=== PATIENT | female | born 1995 | race Caucasian/White ===

== ENCOUNTER 2020-07-29 09:13 | Inpatient (IN) | payer BC ==
[2020-07-29] MEDS ORDERED: Sodium Chloride 0.9% 10 ML Syringe FLUSH PRN (19:43)
[2020-07-29] MEDS ORDERED: Misoprostol 100 MCG Tab VAG PRN (19:43)
[2020-07-29] MEDS ORDERED: Nalbuphine 10 MG/1 ML Vial IVPUSH PRN (19:43)
[2020-07-29] MEDS ORDERED: Lidocaine 1% 50 ML MDV INJECT ONE (19:43)
[2020-07-29] MEDS ORDERED: Ondansetron 4 MG/2 ML SDV IVPUSH PRN (19:43)
[2020-07-29] MEDS ORDERED: Calcium Carbonate 500 MG Tab.Chew PO PRN (19:43)
[2020-07-29] MEDS ORDERED: Acetaminophen 325 MG Tab PO PRN (19:43)
[2020-07-29] MEDS ORDERED: Lactated Ringers 1,000 ML IV SCH (19:45)
[2020-07-29] MEDS ORDERED: Oxytocin/Lactated Ringers 10 UNIT/1,000 ML BAG IV SCH ×2 (19:45)
[2020-07-29] MEDS ORDERED: Ampicillin 2 GM in Sodium Chloride 0.9% 100 ML IV ONE (20:00)
[2020-07-29] MEDS ORDERED: Misoprostol 25 MCG (1/4 of 100 MCG) Tab ONE (20:07)
[2020-07-29] MEDS: Misoprostol 25 MCG (1/4 of 100 MCG) Tab VAG PRN (20:15)
[2020-07-30] MEDS: Misoprostol 25 MCG (1/4 of 100 MCG) Tab VAG PRN (00:30)
[2020-07-30] MEDS: Ampicillin 1 GM in Sodium Chloride 0.9% 100 ML IV SCH ×3 (00:30→08:04)
[2020-07-30] MEDS ORDERED: diphenhydrAMINE 50 MG/ML SDV IVPUSH PRN (00:37)
[2020-07-30] MEDS ORDERED: ePHEDrine 50 MG/ML SDV IVPUSH PRN (00:37)
[2020-07-30] MEDS ORDERED: Bupivacaine/fentaNYL/NS 100 ML Bag EPIDUR PRN (00:37)
[2020-07-30] MEDS ORDERED: fentaNYL 100 MCG/2 ML SDV EPIDUR PRN (00:37)
[2020-07-30] MEDS ORDERED: Lidocaine 1% 50 ML MDV ONE (09:17)
--- NOTE | 2020-07-30 09:49 | PCM.LDHP ---
L&D History of Present Illness - General Date of Service: 07/30/20 Admit Problem/Dx: Patient Status Order with Admit Dx/Problem 07/29/20 19:44 Patient Status [ADT] Routine Admission Diagnosis/Problem Admission Diagnosis/Problem Term Source of Information: Patient History Limitations: Reports: No Limitations - History of Present Illness Introduction:: 4-year-old -0-0-1 LIVIA 07/24/2020 patient presented to labor and delivery at 40 weeks 5 days for induction of labor. Patient has history of screening that revealed Klinefelter syndrome XXY (noninvasive testing) Appeared Covid test was positive. 12/04/2019 blood type a positive, antibody screen negative, hemoglobin/hematocrit 13.7/42.4 with platelets 292,000, rubella immune, serology nonreactive, hepatitis B surface antigen negative, HIV negative, Chlamydia probe negative. Sees 01/01/2020 GC chlamydia negative.) 04/26/2020 hemoglobin/hematocrit 11.7/36.8, platelets 262,000, 1 hour OB glucose screen 108. RPR nonreactive. 06/28/2020 GBS positive Admit for induction and delivery. Pain Score: 9 Improves with: Reports: None Worsens with: Reports: None Associated Symptoms: Reports: N - Related Data Allergies/Adverse Reactions: Allergies Allergy/AdvReac Type Severity Reaction Status Date / Time Sulfa (Sulfonamide Allergy Mild Other Verified 07/29/20 20:01 Antibiotics) Home Medications: Home Meds Mv-Mn/Iron/FA/Herbal/Digestive [ One Tablet] 1 each PO DAILY 07/23/20 [History] Ascorbic Acid [Vitamin C] 1 cap PO DAILY 07/29/20 [History] Past Medical History [employer] History: Reports: - Past Surgical History HEENT Surgical History: Reports: Adenoidectomy, Oral Surgery, Tonsillectomy Other HEENT Surgeries/Procedures: [place] teeth extraction Social & Family History - Family History Family Medical History: No Pertinent Family History - Tobacco Use Tobacco Use Status *Q: Never Tobacco User Second Hand Smoke Exposure: No - Recreational Drug Use Recreational Drug Use: No H&P Review of Systems - Review of Systems: Review Of Systems: See Below General: Reports: No Symptoms HEENT: Reports: No Symptoms Pulmonary: Reports: No Symptoms Cardiovascular: Reports: No Symptoms Gastrointestinal: Reports: No Symptoms Genitourinary: Reports: No Symptoms Musculoskeletal: Reports: No Symptoms Skin: Reports: No Symptoms Psychiatric: Reports: No Symptoms Neurological: Reports: No Symptoms Hematologic/Lymphatic: Reports: No Symptoms Immunologic: Reports: No Symptoms L&D Exam - Exam Exam: See Below - Vital Signs Vital Signs: Last Vital Signs Temp 99.4 F 07/29/20 19:20 Pulse 87 07/29/20 19:20 Resp 16 07/29/20 19:20 BP 119/69 07/29/20 19:20 Pulse Ox 97 07/29/20 19:20 Weight: 205 lb 12.8 oz - OB Specific Movement: Active Heart Tones: Present Heart Tones per Min: 140 - Hardy Score Hardy Score Cervix Position: Anterior Hardy Score Consistency: Soft Hardy Score Effacement: 31-50% Hardy Score Dilation: 1-2 cm Hardy Score Infant's Station: -2 Hardy Score Total: 7 - Exam General: Alert, Oriented HEENT: Conjunctiva Clear, Mucosa Moist & [place] Neck: Supple, Trachea Midline Lungs: Clear to Auscultation, Normal Respiratory Effort Cardiovascular: Regular Rate, Regular Rhythm GI/Abdominal Exam: Normal Bowel Sounds, Soft, Non-Tender Genitourinary: Normal external exam Extremities: Normal Inspection, Non-Tender, No Pedal Edema, Normal Capillary Refill Skin: Warm, Dry, Intact Psychiatric: Alert, Normal Affect, Normal Mood - Patient Data Lab Results Last 24 hrs: Laboratory Results - last 24 hr 07/29/20 07/29/20 07/29/20 Range/Units 08:05 08:05 19:34 WBC 11.70 H (3.98-10.04) K/mm3 RBC 4.04 (3.98-5.22) M/mm3 Hgb 9.7 L D (11.2-15.7) gm/dl Hct 31.7 L (34.1-44.9) % MCV 78.5 L D (79.4-94.8) fl MCH 24.0 L (25.6-32.2) pg MCHC 30.6 L (32.2-35.5) g/dl RDW Std Deviation 45.1 (36.4-46.3) fL Plt Count 261 (182-369) K/mm3 MPV 9.4 (9.4-12.3) fl Neut % (Auto) 73.0 H (34.0-71.1) % Lymph % (Auto) 19.1 L (19.3-51.7) % [place] % (Auto) 6.2 (4.7-12.5) % Eos % (Auto) 0.7 (0.7-5.8) Baso % (Auto) 0.2 (0.1-1.2) % Neut # (Auto) 8.55 H (1.56-6.13) K/mm3 Lymph # (Auto) 2.23 (1.18-3.74) K/mm3 [place] # (Auto) 0.73 H (0.24-0.36) K/mm3 Eos # (Auto) 0.08 (0.04-0.36) K/mm3 Baso # (Auto) 0.02 (0.01-0.08) K/mm3 Manual Slide Review Normal smear SARS-CoV-2 RNA (CHELSY) Positive H (NEGATIVE) Blood Type A POSITIVE Gel Antibody Screen Negative Result Diagrams: 07/29/20 08:05 - Problem List (1) 41 weeks gestation of SNOMED Code(s): 01788475 ICD Code: Z3A.41 - 41 WEEKS GESTATION OF Status: Acute Current Visit: Yes (2) GBS (group B Streptococcus carrier), +RV culture, currently SNOMED Code(s): 2005212023917, 350302232, 5135009975160 ICD Code: O99.820 - STREPTOCOCCUS B CARRIER STATE COMPLICATING Status: Acute Current Visit: Yes (3) 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 , 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 SNOMED Code(s): 53161706, 41339948 ICD Code: O09.293 - SUPRVSN OF PREG W POOR REPRODCTV OR OBSTET HX, THIRD TRI Status: Acute Current Visit: Yes Problem List Initiated/Reviewed/Updated: No Orders Last 24hrs: Active Orders 24 hr Category Date Time Status Patient Status [ADT] Routine ADT 07/29/20 19:44 Active Activity as Tolerated [RC] PFP Care 07/29/20 19:44 Active Communication Order [RC] ASDIRECTED Care 07/29/20 19:44 Active Communication Order [RC] ASDIRECTED Care 07/29/20 19:44 Active Communication Order [RC] ASDIRECTED Care 07/29/20 19:44 Active Communication Order [RC] ASDIRECTED Care 07/29/20 19:44 Active Communication Order [RC] ASDIRECTED Care 07/30/20 00:37 Active Cooling Warming Measures [RC] ASDIRECTED Care 07/30/20 00:37 Active Notify Provider [RC] ASDIRECTED Care 07/29/20 19:44 Active Notify Provider [RC] ASDIRECTED Care 07/29/20 19:53 Active Notify Provider [RC] ASDIRECTED Care 07/30/20 00:37 Active Notify Provider [RC] ASDIRECTED Care 07/30/20 00:37 Active Notify Provider [RC] PFP Care 07/29/20 19:44 Active Notify Provider [RC] PRN Care 07/29/20 19:44 Active Peripheral IV Care [RC] . DIRECTED Care 07/29/20 19:44 Active Pump Management, Intrathecal [RC] ASDIRECTED Care 07/29/20 19:45 Active Urinary Catheter Assessment [RC] ASDIRECTED Care 07/29/20 19:43 Active Regular Diet [DIET] Diet 07/29/20 Dinner Active Acetaminophen [TylenoL] Med 07/29/20 19:43 Active 650 mg PO Q4H PRN Ampicillin 1 gm Med 07/30/20 00:00 Active Sodium Chloride 0.9% [Normal Saline] 100 ml IV Q4H Bupivacaine/fentaNYL/NS [fentaNYL/Bupivacaine/NS 2 MCG- Med 07/30/20 00:37 Active 0.125% 100 ML] 100 ml EPIDUR ASDIRECTED PRN Calcium Carbonate [Tums] Med 07/29/20 19:43 Active 1,000 mg PO Q2H PRN Lactated Ringers [Ringers, Lactated] 1,000 ml Med 07/29/20 19:45 Active IV ASDIRECTED Nalbuphine [Nubain] Med 07/29/20 19:43 Active 10 mg IVPUSH Q2H PRN Ondansetron [Zofran] Med 07/29/20 19:43 Active 4 mg IVPUSH Q4H PRN Oxytocin/Lactated Ringers [Pitocin in LR 10 Units/1,000 Med 07/29/20 19:45 Active ML] 10 unit in 1,000 ml IV .CONTINUOUS Oxytocin/Lactated Ringers [Pitocin in LR 10 Units/1,000 Med 07/29/20 19:45 Active ML] 10 unit in 1,000 ml IV TITRATE Sodium Chloride 0.9% [Saline Flush] Med 07/29/20 19:43 Active 10 ml FLUSH ASDIRECTED PRN diphenhydrAMINE [Benadryl] Med 07/30/20 00:37 Active 25 mg IVPUSH Q6H PRN ePHEDrine [ePHEDrine sulfate] Med 07/30/20 00:37 Active 5 mg IVPUSH ASDIRECTED PRN fentaNYL [Sublimaze] Med 07/30/20 00:37 Active 100 mcg EPIDUR Q3H PRN miSOPROStoL [Cytotec] Med 07/29/20 20:15 Active 50 mcg VAG Q4H PRN Electronic Heart Tones Ext w TOCO [WOMSER] Oth 07/29/20 19:44 Ordered Routine Electronic Heart Tones Internal [WOMSER] Per Unit Oth 07/29/20 19:44 Ordered Routine Medication Administration Instruction [OM.PC] Ot 07/29/20 20:00 Ordered ASDIRECTED Peripheral IV Insertion Adult [OM.PC] Routine Oth 07/29/20 19:44 Ordered Resuscitation Status Routine Resus Stat 07/29/20 19:43 Ordered Medication Orders Acetaminophen (Acetaminophen 325 Mg Tab) 650 mg PO Q4H PRN PRN Reason: Pain (Mild 1-3) and fever Calcium Carbonate/Glycine (Calcium Carbonate 500 Mg Tab.Chew) 1,000 mg PO Q2H PRN PRN Reason: Indigestion Diphenhydramine HCl (Diphenhydramine 50 Mg/Ml Sdv) 25 mg IVPUSH Q6H PRN PRN Reason: pruritis Ephedrine Sulfate (Ephedrine 50 Mg/Ml Sdv) 5 mg IVPUSH ASDIRECTED PRN PRN Reason: Hypotension Fentanyl (Fentanyl 100 Mcg/2 Ml Sdv) 100 mcg EPIDUR Q3H PRN PRN Reason: Pain Fentanyl/Bupivacaine HCl (Bupivacaine/Fentanyl/Ns 100 Ml Bag) 100 ml EPIDUR ASDIRECTED PRN PRN Reason: Pain Lactated Ringer's (Ringers, Lactated) 1,000 mls @ 100 mls/hr IV ASDIRECTED BOOGIE Last Admin: 07/30/20 04:34 Dose: 100 mls/hr Documented by: YOSELYN Ampicillin Sodium 1 gm/ Sodium (Chloride) 100 mls @ 200 mls/hr IV Q4H BOOGIE Last Admin: 07/30/20 08:04 Dose: 200 mls/hr Documented by: Infusion: 07/30/20 04:15 Dose: 200 mls/hr Documented by: Admin: 07/30/20 03:45 Dose: 200 mls/hr Documented by: Infusion: 07/30/20 01:00 Dose: 200 mls/hr Documented by: Admin: 07/30/20 00:30 Dose: 200 mls/hr Documented by: YOSELYN Oxytocin/Lactated Ringer's (Pitocin In Lr 10 Units/1,000 Ml) 10 unit in 1,000 mls @ 12 mls/hr IV TITRATE BOOGIE; Protocol Last Admin: 07/30/20 04:32 Dose: 2 munits/min, 12 mls/hr Documented by: YOSELYN Oxytocin/Lactated Ringer's (Pitocin In Lr 10 Units/1,000 Ml) 10 unit in 1,000 mls @ 500 mls/hr IV .CONTINUOUS [facility] Misoprostol (Misoprostol 25 Mcg (1/4 Of 100 Mcg) Tab) 50 mcg VAG Q4H PRN PRN Reason: Cervical Ripening Last Admin: 07/30/20 00:30 Dose: 50 mcg Documented by: Admin: 07/29/20 20:15 Dose: 50 mcg Documented by: YOSELYN Nalbuphine HCl (Nalbuphine 10 Mg/1 Ml Vial) 10 mg IVPUSH Q2H PRN PRN Reason: Pain Last Admin: 07/30/20 06:14 Dose: 10 mg Documented by: YOSELYN Ondansetron HCl (Ondansetron 4 Mg/2 Ml Sdv) 4 mg IVPUSH Q4H PRN PRN Reason: Nausea/Vomiting Sodium Chloride (Sodium Chloride 0.9% 10 Ml Syringe) 10 ml FLUSH ASDIRECTED PRN PRN Reason: Keep Vein Open Assessment/Plan Comment:: Plan delivery
--- NOTE | 2020-07-30 09:57 | PCM.DEL ---
L & D Note - General Info Date of Service: 07/30/20 Mother's Due Date: 07/24/20 - Delivery Note Labor: Induced by Oxytocin Cervical Ripening Method: Misoprostil (50 mcg intravaginal x2 4 hours apart), Oxytocin Delivery Outcome: Livebirth (My goal liveborn (X XY) delivered on Sunday07/30/2020 at 0913 hours JUSTIN, Apgars 8/9, weight 3310 g 7 pounds 4.8 ounces) Infant Delivery Method: Spontaneous Vaginal Delivery-Single Infant Delivery Mode: Spontaneous Presentation: Left Occiput Anterior (JUSTIN) Nuchal Cord: None Prep: Povidone-Iodine (Betadine Anesthesia Type: Local (For third-degree (3C) laceration repair) Anesthetic: Lidocaine (Xylocaine) 1% Plain (7 mL) Local Anesthetic Volume: Other (7 mL) Amniotic Fluid Description: Clear Episiotomy Type: None Laceration: 3rd Degree (3C3) Suture type: Other (Monocryl) Suture size: 3-0 (X3) Placenta: Intact, Spontaneous (07/30/2020 at 915 hours, and intact discarded) Estimated Blood Loss: 200 Resuscitation Needed: No [place]: Suctioned, Bulb Syringe, Stimulated, Warmed, [place] Used, Warmer Used Provider: Kamaljit Patricio Score 1 min: 8 Score 5 min: 9 Induction Criteria - Hardy Score Hardy Score Dilation: 1-2 cm Hardy Score Effacement: 40-50% Hardy Score 's Station: -2 Hardy Score Consistency: Soft Hardy Score Cervix Position: Posterior Hardy Score Total: 5 Hardy Score Presenting Part: Reports: Cephalic - Induction Gestational Age >/= 39 wks: Yes Estimated Pelvis: Reports: Adequate Reassuring Monitoring Strip: Yes Absence of Tachy Systole: Yes - General Info Date of Service: 07/30/20 Functional Status: Reports: Pain Controlled - Review of Systems General: Reports: No Symptoms HEENT: Reports: No Symptoms Pulmonary: Reports: No Symptoms Cardiovascular: Reports: No Symptoms Gastrointestinal: Reports: No Symptoms Genitourinary: Reports: No Symptoms Musculoskeletal: Reports: No Symptoms Skin: Reports: No Symptoms Neurological: Reports: No Symptoms Psychiatric: Reports: No Symptoms - Patient Data Vitals - Most Recent: Last Vital Signs Temp 99.4 F 07/29/20 19:20 Pulse 87 07/29/20 19:20 Resp 16 07/29/20 19:20 BP 119/69 07/29/20 19:20 Pulse Ox 97 07/29/20 19:20 Weight - Most Recent: 205 lb 12.8 oz I&O - Last 24 Hours: Intake & Output 07/29/20 07/30/20 07/30/20 22:59 06:59 14:59 Intake Total 300 Balance 300 Lab Results Last 24 Hours: Laboratory Results - last 24 hr 07/29/20 07/29/20 07/29/20 Range/Units 08:05 08:05 19:34 WBC 11.70 H (3.98-10.04) K/mm3 RBC 4.04 (3.98-5.22) M/mm3 Hgb 9.7 L D (11.2-15.7) gm/dl Hct 31.7 L (34.1-44.9) % MCV 78.5 L D (79.4-94.8) fl MCH 24.0 L (25.6-32.2) pg MCHC 30.6 L (32.2-35.5) g/dl RDW Std Deviation 45.1 (36.4-46.3) fL Plt Count 261 (182-369) K/mm3 MPV 9.4 (9.4-12.3) fl Neut % (Auto) 73.0 H (34.0-71.1) % Lymph % (Auto) 19.1 L (19.3-51.7) % [place] % (Auto) 6.2 (4.7-12.5) % Eos % (Auto) 0.7 (0.7-5.8) Baso % (Auto) 0.2 (0.1-1.2) % Neut # (Auto) 8.55 H (1.56-6.13) K/mm3 Lymph # (Auto) 2.23 (1.18-3.74) K/mm3 [place] # (Auto) 0.73 H (0.24-0.36) K/mm3 Eos # (Auto) 0.08 (0.04-0.36) K/mm3 Baso # (Auto) 0.02 (0.01-0.08) K/mm3 Manual Slide Review Normal smear SARS-CoV-2 RNA (CHELSY) Positive H (NEGATIVE) Blood Type A POSITIVE Gel Antibody Screen Negative Med Orders - Current: Current Medications Acetaminophen (Acetaminophen 325 Mg Tab) 650 mg PO Q4H PRN PRN Reason: Pain (Mild 1-3) and fever Calcium Carbonate/Glycine (Calcium Carbonate 500 Mg Tab.Chew) 1,000 mg PO Q2H PRN PRN Reason: Indigestion Diphenhydramine HCl (Diphenhydramine 50 Mg/Ml Sdv) 25 mg IVPUSH Q6H PRN PRN Reason: pruritis Ephedrine Sulfate (Ephedrine 50 Mg/Ml Sdv) 5 mg IVPUSH ASDIRECTED PRN PRN Reason: Hypotension Fentanyl (Fentanyl 100 Mcg/2 Ml Sdv) 100 mcg EPIDUR Q3H PRN PRN Reason: Pain Fentanyl/Bupivacaine HCl (Bupivacaine/Fentanyl/Ns 100 Ml Bag) 100 ml EPIDUR ASDIRECTED PRN PRN Reason: Pain Lactated Ringer's (Ringers, Lactated) 1,000 mls @ 100 mls/hr IV ASDIRECTED BOOGIE Last Admin: 07/30/20 04:34 Dose: 100 mls/hr Documented by: Ampicillin Sodium 1 gm/ Sodium (Chloride) 100 mls @ 200 mls/hr IV Q4H BOOGIE Last Admin: 07/30/20 08:04 Dose: 200 mls/hr Documented by: Oxytocin/Lactated Ringer's (Pitocin In Lr 10 Units/1,000 Ml) 10 unit in 1,000 mls @ 12 mls/hr IV TITRATE BOOGIE; Protocol Last Admin: 07/30/20 04:32 Dose: 2 munits/min, 12 mls/hr Documented by: Oxytocin/Lactated Ringer's (Pitocin In Lr 10 Units/1,000 Ml) 10 unit in 1,000 mls @ 500 mls/hr IV .CONTINUOUS BOOGIE Misoprostol (Misoprostol 25 Mcg (1/4 Of 100 Mcg) Tab) 50 mcg VAG Q4H PRN PRN Reason: Cervical Ripening Last Admin: 07/30/20 00:30 Dose: 50 mcg Documented by: Nalbuphine HCl (Nalbuphine 10 Mg/1 Ml Vial) 10 mg IVPUSH Q2H PRN PRN Reason: Pain Last Admin: 07/30/20 06:14 Dose: 10 mg Documented by: Ondansetron HCl (Ondansetron 4 Mg/2 Ml Sdv) 4 mg IVPUSH Q4H PRN PRN Reason: Nausea/Vomiting Sodium Chloride (Sodium Chloride 0.9% 10 Ml Syringe) 10 ml FLUSH ASDIRECTED PRN PRN Reason: Keep Vein Open Discontinued Medications Ampicillin Sodium 2 gm/ Sodium (Chloride) 100 mls @ 200 mls/hr IV ONETIME ONE Stop: 07/29/20 20:29 Last Admin: 07/29/20 20:10 Dose: 200 mls/hr Documented by: Lidocaine HCl (Lidocaine 1% 50 Ml Mdv) 20 ml INJECT ONETIME ONE Stop: 07/29/20 19:44 Lidocaine HCl (Lidocaine 1% 50 Ml Mdv) Confirm Administered Dose 50 ml .ROUTE .STK-MED ONE Stop: 07/30/20 09:18 Misoprostol (Misoprostol 100 Mcg Tab) 50 mcg VAG Q4HR PRN PRN Reason: Cervical Ripening Misoprostol (Misoprostol 25 Mcg (1/4 Of 100 Mcg) Tab) Confirm Administered Dose 50 mcg .ROUTE .STK-MED ONE Stop: 07/29/20 20:08 Last Admin: 07/29/20 20:20 Dose: Not Given Documented by: - Exam General: Alert, Oriented HEENT: Pupils Equal, Mucous Membr. Moist/[place] Neck: Supple Lungs: Clear to Auscultation, Normal Respiratory Effort Cardiovascular: Regular Rate, Regular Rhythm GI/Abdominal Exam: Normal Bowel Sounds, Soft, Non-Tender Extremities: Normal Inspection, Non-Tender, No Pedal Edema, Normal Capillary Refill Skin: Warm, Dry, Intact Neurological: No New Focal Deficit Psy/Mental Status: Alert, Normal Affect, Normal Mood - Problem List & Annotations (1) 41 weeks gestation of SNOMED Code(s): 85081865 Code(s): Z3A.41 - 41 WEEKS GESTATION OF Status: Acute Current Visit: Yes (2) GBS (group B Streptococcus carrier), +RV culture, currently SNOMED Code(s): 1737340391997, 322229735, 5107388625059 Code(s): O99.820 - STREPTOCOCCUS B CARRIER STATE COMPLICATING Status: Acute Current Visit: Yes (3) 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 , 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 SNOMED Code(s): 94526502, 96107537 Code(s): O09.293 - SUPRVSN OF PREG W POOR REPRODCTV OR OBSTET HX, THIRD TRI Status: Acute Current Visit: Yes (4) Third degree perineal laceration during delivery, iiic SNOMED Code(s): 285671259, 543938766 Code(s): O70.23 - THIRD DEGREE PERINEAL LACERATION DURING DELIVERY, IIIC Status: Acute Current Visit: Yes - Problem List Review Problem List Initiated/Reviewed/Updated: No - My Orders Last 24 Hours: My Active Orders 07/29/20 Dinner Regular Diet [DIET] 07/29/20 19:43 Urinary Catheter Assessment [RC] ASDIRECTED Acetaminophen [TylenoL] 650 mg PO Q4H PRN Calcium Carbonate [Tums] 1,000 mg PO Q2H PRN Nalbuphine [Nubain] 10 mg IVPUSH Q2H PRN Ondansetron [Zofran] 4 mg IVPUSH Q4H PRN Sodium Chloride 0.9% [Saline Flush] 10 ml FLUSH ASDIRECTED PRN Resuscitation Status Routine 07/29/20 19:44 Patient Status [ADT] Routine Activity as Tolerated [RC] PFP Communication Order [RC] ASDIRECTED Communication Order [RC] ASDIRECTED Communication Order [RC] ASDIRECTED Communication Order [RC] ASDIRECTED Notify Provider [RC] ASDIRECTED Notify Provider [RC] PFP Notify Provider [RC] PRN Peripheral IV Care [RC] . DIRECTED Electronic Heart Tones Ext w TOCO [WOMSER] Routine Electronic Heart Tones Internal [WOMSER] Per Unit Routine Peripheral IV Insertion Adult [OM.PC] Routine 07/29/20 19:45 Pump Management, Intrathecal [RC] ASDIRECTED Lactated Ringers [Ringers, Lactated] 1,000 ml IV ASDIRECTED Oxytocin/Lactated Ringers [Pitocin in LR 10 Units/1,000 ML] 10 unit in 1,000 ml IV .CONTINUOUS Oxytocin/Lactated Ringers [Pitocin in LR 10 Units/1,000 ML] 10 unit in 1,000 ml IV TITRATE 07/29/20 19:53 Notify Provider [RC] ASDIRECTED 07/29/20 20:00 Medication Administration Instruction [OM.PC] ASDIRECTED 07/29/20 20:15 miSOPROStoL [Cytotec] 50 mcg VAG Q4H PRN 07/30/20 00:00 Ampicillin 1 gm Sodium Chloride 0.9% [Normal Saline] 100 ml IV Q4H - Plan Plan:: Plan delivery
[2020-07-30] MEDS ORDERED: Witch Hazel Medicated Pads 40/Jar TOP PRN (10:08)
[2020-07-30] MEDS ORDERED: Docusate Sodium 100 MG Cap PO PRN (10:08)
[2020-07-30] MEDS ORDERED: Acetaminophen 325 MG Tab PO PRN (10:08)
[2020-07-30] MEDS ORDERED: Benzocaine/Menthol 20%-0.5% Spray 56 GM Canister TOP PRN (10:08)
[2020-07-30] MEDS: Ibuprofen 600 MG Tab PO PRN (14:39)
[2020-07-31] MEDS: Ibuprofen 600 MG Tab PO PRN ×2 (00:21→05:24)
--- NOTE | 2020-07-31 10:35 | PCM.DCSUM1 ---
Discharge Summary - Hospital Course Free Text/Narrative:: [facility] L/D Delivery Note Patient Name: BERENICE JONES Date of : 89 Patient Status: Inpatient Attending Provider: Kamaljit Patricio Date: 07/30/20 09:52 Initialization Date: 07/30/20 09:52 L & D Note - General Info Date of Service: 07/30/20 Mother's Due Date: 07/24/20 - Delivery Note Labor: Induced by Oxytocin Cervical Ripening Method: Misoprostil (50 mcg intravaginal x2 4 hours apart), Oxytocin Delivery Outcome: Livebirth (My goal liveborn (X XY) delivered on Sunday07/30/2020 at 0913 hours JUSTIN, Apgars 8/9, weight 3310 g 7 pounds 4.8 ounces) Infant Delivery Method: Spontaneous Vaginal Delivery-Single Infant Delivery Mode: Spontaneous Presentation: Left Occiput Anterior (JUSTIN) Nuchal Cord: None Prep: Povidone-Iodine (Betadine Anesthesia Type: Local (For third-degree (3C) laceration repair) Anesthetic: Lidocaine (Xylocaine) 1% Plain (7 mL) Local Anesthetic Volume: Other (7 mL) Amniotic Fluid Description: Clear Episiotomy Type: None Laceration: 3rd Degree (3C3) Suture type: Other (Monocryl) Suture size: 3-0 (X3) Placenta: Intact, Spontaneous (07/30/2020 at 915 hours, and intact discarded) Estimated Blood Loss: 200 Resuscitation Needed: No [place]: Suctioned, Bulb Syringe, Stimulated, Warmed, [place] Used, Warmer Used Provider: Kamaljit Patricio Score 1 min: 8 Score 5 min: 9 Induction Criteria - Hardy Score Hardy Score Dilation: 1-2 cm Hardy Score Effacement: 40-50% Hardy Score Infant's Station: -2 Hardy Score Consistency: Soft Haryd Score Cervix Position: Posterior Hardy Score Total: 5 Hardy Score Presenting Part: Reports: Cephalic - Induction Gestational Age >/= 39 wks: Yes Estimated Pelvis: Reports: Adequate Reassuring Monitoring Strip: Yes Absence of Tachy Systole: Yes - General Info Date of Service: 07/30/20 Functional Status: Reports: Pain Controlled - Review of Systems General: Reports: No Symptoms HEENT: Reports: No Symptoms Pulmonary: Reports: No Symptoms Cardiovascular: Reports: No Symptoms Gastrointestinal: Reports: No Symptoms Genitourinary: Reports: No Symptoms Musculoskeletal: Reports: No Symptoms Skin: Reports: No Symptoms Neurological: Reports: No Symptoms Psychiatric: Reports: No Symptoms - Patient Data Vitals - Most Recent: Last Vital Signs Temp 99.4 F 07/29/20 19:20 Pulse 87 07/29/20 19:20 Resp 16 07/29/20 19:20 BP 119/69 07/29/20 19:20 Pulse Ox 97 07/29/20 19:20 Weight - Most Recent: 205 lb 12.8 oz I&O - Last 24 Hours: Intake & Output 07/29/20 07/30/20 07/30/20 22:59 06:59 14:59 Intake Total 300 Balance 300 Lab Results Last 24 Hours: Laboratory Results - last 24 hr 07/29/20 07/29/20 07/29/20 Range/Units 08:05 08:05 19:34 WBC 11.70 H (3.98-10.04) K/mm3 RBC 4.04 (3.98-5.22) M/mm3 Hgb 9.7 L D (11.2-15.7) gm/dl Hct 31.7 L (34.1-44.9) % MCV 78.5 L D (79.4-94.8) fl MCH 24.0 L (25.6-32.2) pg MCHC 30.6 L (32.2-35.5) g/dl RDW Std Deviation 45.1 (36.4-46.3) fL Plt Count 261 (182-369) K/mm3 MPV 9.4 (9.4-12.3) fl Neut % (Auto) 73.0 H (34.0-71.1) % Lymph % (Auto) 19.1 L (19.3-51.7) % Gibson % (Auto) 6.2 (4.7-12.5) % Eos % (Auto) 0.7 (0.7-5.8) Baso % (Auto) 0.2 (0.1-1.2) % Neut # (Auto) 8.55 H (1.56-6.13) K/mm3 Lymph # (Auto) 2.23 (1.18-3.74) K/mm3 Gibson # (Auto) 0.73 H (0.24-0.36) K/mm3 Eos # (Auto) 0.08 (0.04-0.36) K/mm3 Baso # (Auto) 0.02 (0.01-0.08) K/mm3 Manual Slide Review Normal smear SARS-CoV-2 RNA (CHELSY) Positive H (NEGATIVE) Blood Type A POSITIVE Gel Antibody Screen Negative Med Orders - Current: Current Medications Acetaminophen (Acetaminophen 325 Mg Tab) 650 mg PO Q4H PRN PRN Reason: Pain (Mild 1-3) and fever Calcium Carbonate/Glycine (Calcium Carbonate 500 Mg Tab.Chew) 1,000 mg PO Q2H PRN PRN Reason: Indigestion Diphenhydramine HCl (Diphenhydramine 50 Mg/Ml Sdv) 25 mg IVPUSH Q6H PRN PRN Reason: pruritis Ephedrine Sulfate (Ephedrine 50 Mg/Ml Sdv) 5 mg IVPUSH ASDIRECTED PRN PRN Reason: Hypotension Fentanyl (Fentanyl 100 Mcg/2 Ml Sdv) 100 mcg EPIDUR Q3H PRN PRN Reason: Pain Fentanyl/Bupivacaine HCl (Bupivacaine/Fentanyl/Ns 100 Ml Bag) 100 ml EPIDUR ASDIRECTED PRN PRN Reason: Pain Lactated Ringer's (Ringers, Lactated) 1,000 mls @ 100 mls/hr IV ASDIRECTED [facility] Last Admin: 07/30/20 04:34 Dose: 100 mls/hr Documented by: Ampicillin Sodium 1 gm/ Sodium (Chloride) 100 mls @ 200 mls/hr IV Q4H [facility] Last Admin: 07/30/20 08:04 Dose: 200 mls/hr Documented by: Oxytocin/Lactated Ringer's (Pitocin In Lr 10 Units/1,000 Ml) 10 unit in 1,000 mls @ 12 mls/hr IV TITRATE [facility]; Protocol Last Admin: 07/30/20 04:32 Dose: 2 munits/min, 12 mls/hr Documented by: Oxytocin/Lactated Ringer's (Pitocin In Lr 10 Units/1,000 Ml) 10 unit in 1,000 mls @ 500 mls/hr IV .CONTINUOUS [facility] Misoprostol (Misoprostol 25 Mcg (1/4 Of 100 Mcg) Tab) 50 mcg VAG Q4H PRN PRN Reason: Cervical Ripening Last Admin: 07/30/20 00:30 Dose: 50 mcg Documented by: Nalbuphine HCl (Nalbuphine 10 Mg/1 Ml Vial) 10 mg IVPUSH Q2H PRN PRN Reason: Pain Last Admin: 07/30/20 06:14 Dose: 10 mg Documented by: Ondansetron HCl (Ondansetron 4 Mg/2 Ml Sdv) 4 mg IVPUSH Q4H PRN PRN Reason: Nausea/Vomiting Sodium Chloride (Sodium Chloride 0.9% 10 Ml Syringe) 10 ml FLUSH ASDIRECTED PRN PRN Reason: Keep Vein Open Discontinued Medications Ampicillin Sodium 2 gm/ Sodium (Chloride) 100 mls @ 200 mls/hr IV ONETIME ONE Stop: 07/29/20 20:29 Last Admin: 07/29/20 20:10 Dose: 200 mls/hr Documented by: Lidocaine HCl (Lidocaine 1% 50 Ml Mdv) 20 ml INJECT ONETIME ONE Stop: 07/29/20 19:44 Lidocaine HCl (Lidocaine 1% 50 Ml Mdv) Confirm Administered Dose 50 ml .ROUTE .STK-MED ONE Stop: 07/30/20 09:18 Misoprostol (Misoprostol 100 Mcg Tab) 50 mcg VAG Q4HR PRN PRN Reason: Cervical Ripening Misoprostol (Misoprostol 25 Mcg (1/4 Of 100 Mcg) Tab) Confirm Administered Dose 50 mcg .ROUTE .STK-MED ONE Stop: 07/29/20 20:08 Last Admin: 07/29/20 20:20 Dose: Not Given Documented by: - Exam General: Alert, Oriented HEENT: Pupils Equal, Mucous Membr. Moist/[place] Neck: Supple Lungs: Clear to Auscultation, Normal Respiratory Effort Cardiovascular: Regular Rate, Regular Rhythm GI/Abdominal Exam: Normal Bowel Sounds, Soft, Non-Tender Extremities: Normal Inspection, Non-Tender, No Pedal Edema, Normal Capillary Refill Skin: Warm, Dry, Intact Neurological: No New Focal Deficit Psy/Mental Status: Alert, Normal Affect, Normal Mood - Problem List & Annotations (1) 41 weeks gestation of SNOMED Code(s): 15893448 Code(s): Z3A.41 - 41 WEEKS GESTATION OF Status: Acute Current Visit: Yes (2) GBS (group B Streptococcus carrier), +RV culture, currently SNOMED Code(s): 9377291668904, 424959984, 6172046971623 Code(s): O99.820 - STREPTOCOCCUS B CARRIER STATE COMPLICATING Status: Acute Current Visit: Yes (3) 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 , 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 SNOMED Code(s): 20897914, 29955820 Code(s): O09.293 - SUPRVSN OF PREG W POOR REPRODCTV OR OBSTET HX, THIRD TRI Status: Acute Current Visit: Yes (4) Third degree perineal laceration during delivery, iiic SNOMED Code(s): 101052840, 291619213 Code(s): O70.23 - THIRD DEGREE PERINEAL LACERATION DURING DELIVERY, IIIC Status: Acute Current Visit: Yes - Problem List Review Problem List Initiated/Reviewed/Updated: No - My Orders Last 24 Hours: My Active Orders 07/29/20 Dinner Regular Diet [DIET] 07/29/20 19:43 Urinary Catheter Assessment [RC] ASDIRECTED Acetaminophen [TylenoL] 650 mg PO Q4H PRN Calcium Carbonate [Tums] 1,000 mg PO Q2H PRN Nalbuphine [Nubain] 10 mg IVPUSH Q2H PRN Ondansetron [Zofran] 4 mg IVPUSH Q4H PRN Sodium Chloride 0.9% [Saline Flush] 10 ml FLUSH ASDIRECTED PRN Resuscitation Status Routine 07/29/20 19:44 Patient Status [ADT] Routine Activity as Tolerated [RC] PFP Communication Order [RC] ASDIRECTED Communication Order [RC] ASDIRECTED Communication Order [RC] ASDIRECTED Communication Order [RC] ASDIRECTED Notify Provider [RC] ASDIRECTED Notify Provider [RC] PFP Notify Provider [RC] PRN Peripheral IV Care [RC] . DIRECTED Electronic Heart Tones Ext w TOCO [WOMSER] Routine Electronic Heart Tones Internal [WOMSER] Per Unit Routine Peripheral IV Insertion Adult [OM.PC] Routine 07/29/20 19:45 Pump Management, Intrathecal [RC] ASDIRECTED Lactated Ringers [Ringers, Lactated] 1,000 ml IV ASDIRECTED Oxytocin/Lactated Ringers [Pitocin in LR 10 Units/1,000 ML] 10 unit in 1,000 ml IV .CONTINUOUS Oxytocin/Lactated Ringers [Pitocin in LR 10 Units/1,000 ML] 10 unit in 1,000 ml IV TITRATE 07/29/20 19:53 Notify Provider [RC] ASDIRECTED 07/29/20 20:00 Medication Administration Instruction [OM.PC] ASDIRECTED 07/29/20 20:15 miSOPROStoL [Cytotec] 50 mcg VAG Q4H PRN 07/30/20 00:00 Ampicillin 1 gm Sodium Chloride 0.9% [Normal Saline] 100 ml IV Q4H - Plan Plan:: Plan delivery HPI Initial Comments: [facility] L/[facility] Delivery Note Patient Name: BERENICE JONES Date of : 89 Patient Status: Inpatient Attending Provider: Kamaljit Patricio Date: 07/30/20 09:52 Initialization Date: 07/30/20 09:52 L & D Note - General Info Date of Service: 07/30/20 Mother's Due Date: 07/24/20 - Delivery Note Labor: Induced by Oxytocin Cervical Ripening Method: Misoprostil (50 mcg intravaginal x2 4 hours apart), Oxytocin Delivery Outcome: Livebirth (My goal liveborn (X XY) delivered on Sunday07/30/2020 at 0913 hours JUSTIN, Apgars 8/9, weight 3310 g 7 pounds 4.8 ounces) Infant Delivery Method: Spontaneous Vaginal Delivery-Single Delivery Mode: Spontaneous Presentation: Left Occiput Anterior (JUSTIN) Nuchal Cord: None Prep: Povidone-Iodine (Betadine Anesthesia Type: Local (For third-degree (3C) laceration repair) Anesthetic: Lidocaine (Xylocaine) 1% Plain (7 mL) Local Anesthetic Volume: Other (7 mL) Amniotic Fluid Description: Clear Episiotomy Type: None Laceration: 3rd Degree (3C3) Suture type: Other (Monocryl) Suture size: 3-0 (X3) Placenta: Intact, Spontaneous (07/30/2020 at 915 hours, and intact discarded) Estimated Blood Loss: 200 Resuscitation Needed: No : Suctioned, Bulb Syringe, Stimulated, Warmed, [place] Used, Warmer Used Provider: Kamaljit Patricio Score 1 min: 8 Score 5 min: 9 Induction Criteria - Hardy Score Hardy Score Dilation: 1-2 cm Hardy Score Effacement: 40-50% Hardy Score 's Station: -2 Hardy Score Consistency: Soft Hardy Score Cervix Position: Posterior Hardy Score Total: 5 Hardy Score Presenting Part: Reports: Cephalic - Induction Gestational Age >/= 39 wks: Yes Estimated Pelvis: Reports: Adequate Reassuring Monitoring Strip: Yes Absence of Tachy Systole: Yes - General Info Date of Service: 07/30/20 Functional Status: Reports: Pain Controlled - Review of Systems General: Reports: No Symptoms HEENT: Reports: No Symptoms Pulmonary: Reports: No Symptoms Cardiovascular: Reports: No Symptoms Gastrointestinal: Reports: No Symptoms Genitourinary: Reports: No Symptoms Musculoskeletal: Reports: No Symptoms Skin: Reports: No Symptoms Neurological: Reports: No Symptoms Psychiatric: Reports: No Symptoms - Patient Data Vitals - Most Recent: Last Vital Signs Temp 99.4 F 07/29/20 19:20 Pulse 87 07/29/20 19:20 Resp 16 07/29/20 19:20 BP 119/69 07/29/20 19:20 Pulse Ox 97 07/29/20 19:20 Weight - Most Recent: 205 lb 12.8 oz I&O - Last 24 Hours: Intake & Output 07/29/20 07/30/20 07/30/20 22:59 06:59 14:59 Intake Total 300 Balance 300 Lab Results Last 24 Hours: Laboratory Results - last 24 hr 07/29/20 07/29/20 07/29/20 Range/Units 08:05 08:05 19:34 WBC 11.70 H (3.98-10.04) K/mm3 RBC 4.04 (3.98-5.22) M/mm3 Hgb 9.7 L D (11.2-15.7) gm/dl Hct 31.7 L (34.1-44.9) % MCV 78.5 L D (79.4-94.8) fl MCH 24.0 L (25.6-32.2) pg MCHC 30.6 L (32.2-35.5) g/dl RDW Std Deviation 45.1 (36.4-46.3) fL Plt Count 261 (182-369) K/mm3 MPV 9.4 (9.4-12.3) fl Neut % (Auto) 73.0 H (34.0-71.1) % Lymph % (Auto) 19.1 L (19.3-51.7) % Gibson % (Auto) 6.2 (4.7-12.5) % Eos % (Auto) 0.7 (0.7-5.8) Baso % (Auto) 0.2 (0.1-1.2) % Neut # (Auto) 8.55 H (1.56-6.13) K/mm3 Lymph # (Auto) 2.23 (1.18-3.74) K/mm3 [place] # (Auto) 0.73 H (0.24-0.36) K/mm3 Eos # (Auto) 0.08 (0.04-0.36) K/mm3 Baso # (Auto) 0.02 (0.01-0.08) K/mm3 Manual Slide Review Normal smear SARS-CoV-2 RNA (CHELSY) Positive H (NEGATIVE) Blood Type A POSITIVE Gel Antibody Screen Negative Med Orders - Current: Current Medications Acetaminophen (Acetaminophen 325 Mg Tab) 650 mg PO Q4H PRN PRN Reason: Pain (Mild 1-3) and fever Calcium Carbonate/Glycine (Calcium Carbonate 500 Mg Tab.Chew) 1,000 mg PO Q2H PRN PRN Reason: Indigestion Diphenhydramine HCl (Diphenhydramine 50 Mg/Ml Sdv) 25 mg IVPUSH Q6H PRN PRN Reason: pruritis Ephedrine Sulfate (Ephedrine 50 Mg/Ml Sdv) 5 mg IVPUSH ASDIRECTED PRN PRN Reason: Hypotension Fentanyl (Fentanyl 100 Mcg/2 Ml Sdv) 100 mcg EPIDUR Q3H PRN PRN Reason: Pain Fentanyl/Bupivacaine HCl (Bupivacaine/Fentanyl/Ns 100 Ml Bag) 100 ml EPIDUR ASDIRECTED PRN PRN Reason: Pain Lactated Ringer's (Ringers, Lactated) 1,000 mls @ 100 mls/hr IV ASDIRECTED [facility] Last Admin: 07/30/20 04:34 Dose: 100 mls/hr Documented by: Ampicillin Sodium 1 gm/ Sodium (Chloride) 100 mls @ 200 mls/hr IV Q4H [facility] Last Admin: 07/30/20 08:04 Dose: 200 mls/hr Documented by: Oxytocin/Lactated Ringer's (Pitocin In Lr 10 Units/1,000 Ml) 10 unit in 1,000 mls @ 12 mls/hr IV TITRATE [facility]; Protocol Last Admin: 07/30/20 04:32 Dose: 2 munits/min, 12 mls/hr Documented by: Oxytocin/Lactated Ringer's (Pitocin In Lr 10 Units/1,000 Ml) 10 unit in 1,000 mls @ 500 mls/hr IV .CONTINUOUS [facility] Misoprostol (Misoprostol 25 Mcg (1/4 Of 100 Mcg) Tab) 50 mcg VAG Q4H PRN PRN Reason: Cervical Ripening Last Admin: 07/30/20 00:30 Dose: 50 mcg Documented by: Nalbuphine HCl (Nalbuphine 10 Mg/1 Ml Vial) 10 mg IVPUSH Q2H PRN PRN Reason: Pain Last Admin: 07/30/20 06:14 Dose: 10 mg Documented by: Ondansetron HCl (Ondansetron 4 Mg/2 Ml Sdv) 4 mg IVPUSH Q4H PRN PRN Reason: Nausea/Vomiting Sodium Chloride (Sodium Chloride 0.9% 10 Ml Syringe) 10 ml FLUSH ASDIRECTED PRN PRN Reason: Keep Vein Open Discontinued Medications Ampicillin Sodium 2 gm/ Sodium (Chloride) 100 mls @ 200 mls/hr IV ONETIME ONE Stop: 07/29/20 20:29 Last Admin: 07/29/20 20:10 Dose: 200 mls/hr Documented by: Lidocaine HCl (Lidocaine 1% 50 Ml Mdv) 20 ml INJECT ONETIME ONE Stop: 07/29/20 19:44 Lidocaine HCl (Lidocaine 1% 50 Ml Mdv) Confirm Administered Dose 50 ml .ROUTE .STK-MED ONE Stop: 07/30/20 09:18 Misoprostol (Misoprostol 100 Mcg Tab) 50 mcg VAG Q4HR PRN PRN Reason: Cervical Ripening Misoprostol (Misoprostol 25 Mcg (1/4 Of 100 Mcg) Tab) Confirm Administered Dose 50 mcg .ROUTE .STK-MED ONE Stop: 07/29/20 20:08 Last Admin: 07/29/20 20:20 Dose: Not Given Documented by: - Exam General: Alert, Oriented HEENT: Pupils Equal, Mucous Membr. Moist/[place] Neck: Supple Lungs: Clear to Auscultation, Normal Respiratory Effort Cardiovascular: Regular Rate, Regular Rhythm GI/Abdominal Exam: Normal Bowel Sounds, Soft, Non-Tender Extremities: Normal Inspection, Non-Tender, No Pedal Edema, Normal Capillary Refill Skin: Warm, Dry, Intact Neurological: No New Focal Deficit Psy/Mental Status: Alert, Normal Affect, Normal Mood - Problem List & Annotations (1) 41 weeks gestation of SNOMED Code(s): 49757489 Code(s): Z3A.41 - 41 WEEKS GESTATION OF Status: Acute Current Visit: Yes (2) GBS (group B Streptococcus carrier), +RV culture, currently SNOMED Code(s): 3444637765995, 846915645, 9367557800272 Code(s): O99.820 - STREPTOCOCCUS B CARRIER STATE COMPLICATING Status: Acute Current Visit: Yes (3) 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 , 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 SNOMED Code(s): 47731382, 87117419 Code(s): O09.293 - SUPRVSN OF PREG W POOR REPRODCTV OR OBSTET HX, THIRD TRI Status: Acute Current Visit: Yes (4) Third degree perineal laceration during delivery, iiic SNOMED Code(s): 911226060, 047219826 Code(s): O70.23 - THIRD DEGREE PERINEAL LACERATION DURING DELIVERY, IIIC Status: Acute Current Visit: Yes - Problem List Review Problem List Initiated/Reviewed/Updated: No - My Orders Last 24 Hours: My Active Orders 07/29/20 Dinner Regular Diet [DIET] 07/29/20 19:43 Urinary Catheter Assessment [RC] ASDIRECTED Acetaminophen [TylenoL] 650 mg PO Q4H PRN Calcium Carbonate [Tums] 1,000 mg PO Q2H PRN Nalbuphine [Nubain] 10 mg IVPUSH Q2H PRN Ondansetron [Zofran] 4 mg IVPUSH Q4H PRN Sodium Chloride 0.9% [Saline Flush] 10 ml FLUSH ASDIRECTED PRN Resuscitation Status Routine 07/29/20 19:44 Patient Status [ADT] Routine Activity as Tolerated [RC] PFP Communication Order [RC] ASDIRECTED Communication Order [RC] ASDIRECTED Communication Order [RC] ASDIRECTED Communication Order [RC] ASDIRECTED Notify Provider [RC] ASDIRECTED Notify Provider [RC] PFP Notify Provider [RC] PRN Peripheral IV Care [RC] . DIRECTED Electronic Heart Tones Ext w TOCO [WOMSER] Routine Electronic Heart Tones Internal [WOMSER] Per Unit Routine Peripheral IV Insertion Adult [OM.PC] Routine 07/29/20 19:45 Pump Management, Intrathecal [RC] ASDIRECTED Lactated Ringers [Ringers, Lactated] 1,000 ml IV ASDIRECTED Oxytocin/Lactated Ringers [Pitocin in LR 10 Units/1,000 ML] 10 unit in 1,000 ml IV .CONTINUOUS Oxytocin/Lactated Ringers [Pitocin in LR 10 Units/1,000 ML] 10 unit in 1,000 ml IV TITRATE 07/29/20 19:53 Notify Provider [RC] ASDIRECTED 07/29/20 20:00 Medication Administration Instruction [OM.PC] ASDIRECTED 07/29/20 20:15 miSOPROStoL [Cytotec] 50 mcg VAG Q4H PRN 07/30/20 00:00 Ampicillin 1 gm Sodium Chloride 0.9% [Normal Saline] 100 ml IV Q4H - Plan Plan:: Plan delivery Brief History: [facility] . L/D Delivery Note. Patient Name: BERENICE JONES Record Number: [id number]. Date of : 89Patient Status: Inpatient. Attending Provider: Kamaljit Patricio Number: [id number]. Date: 07/30/20 09:52Initialization Date: 07/30/20 09:52. L & D Note. - General Info. Date of Service: 07/30/20. Mother's Due Date: 07/24/20. - Delivery Note. Labor: Induced by Oxytocin. Cervical Ripening Method: Misoprostil (50 mcg intravaginal x2 4 hours apart), Oxytocin. Delivery Outcome: Livebirth (My goal liveborn (X XY) delivered on Sunday07/30/2020 at 0913 hours JUSTIN, Apgars 8/9, weight 3310 g 7 pounds 4.8 ounces). Infant Delivery Method: Spontaneous Vaginal Delivery-Single. Delivery Mode: Spontaneous. Presentation: Left Occiput Anterior (JUSTIN). Nuchal Cord: None. Prep: Povidone-Iodine (Betadine. Anesthesia Type: Local (For third-degree (3C) laceration repair). Anesthetic: Lidocaine (Xylocaine) 1% Plain (7 mL). Local Anesthetic Volume: Other (7 mL). Amniotic Fluid Description: Clear. Episiotomy Type: None. Laceration: 3rd Degree (3C3). Suture type: Other (Monocryl). Suture size: 3-0 (X3). Placenta: Intact, Spontaneous (07/30/2020 at 915 hours, and intact discarded). Estimated Blood Loss: 200. Resuscitation Needed: No. : Suctioned, Bulb Syringe, Stimulated, Warmed, [place] Used, Warmer Used. Provider: Kamaljit Patricio. Score 1 min: 8. Score 5 min: 9. Induction Criteria. - Hardy Score. Hardy Score Dilation: 1-2 cm. Hardy Score Effacement: 40-50%. Hardy Score Infant's Station: -2. Hardy Score Consistency: Soft. Hardy Score Cervix Position: Posterior. Hardy Score Total: 5. Hardy Score Presenting Part: Reports: Cephalic. - Induction. Gestational Age >/= 39 wks: Yes. Estimated Pelvis: Reports: Adequate. Reassuring Monitoring Strip: Yes. Absence of Tachy Systole: Yes. - General Info. Date of Service: 07/30/20. Functional Status: Reports: Pain Controlled. - Review of Systems. General: Reports: No Symptoms. HEENT: Reports: No Symptoms. Pulmonary: Reports: No Symptoms. Cardiovascular: Reports: No Symptoms. Gastrointestinal: Reports: No Symptoms. Genitourinary: Reports: No Symptoms. Musculoskeletal: Reports: No Symptoms. Skin: Reports: No Symptoms. Neurological: Reports: No Symptoms. Psychiatric: Reports: No Symptoms. - Patient Data. Vitals - Most Recent: Last Vital Signs. Temp 99.4 F 07/29/20 19:20. Pulse 87 07/29/20 19:20. Resp 16 07/29/20 19:20. BP 119/69 07/29/20 19:20. Pulse Ox 97 07/29/20 19:20. Weight - Most Recent: 205 lb 12.8 oz. I&O - Last 24 Hours: Intake & Output. 07/30/2103. 22:5906:5914:59. Intake [id number]. [id number]. Lab Results Last 24 Hours: Laboratory Results - last 24 hr. 07/30/2103Range/Units. 08:0508:0519:34. WBC 11.70 H (3.98-10.04) K/mm3. RBC 4.04 (3.98-5.22) M/mm3. Hgb 9.7 L D (11.2-15.7) gm/dl. Hct 31.7 L (34.1-44.9) %. MCV 78.5 L D (79.4-94.8) fl. MCH 24.0 L (25.6-32.2) pg. MCHC 30.6 L (32.2-35.5) g/dl. RDW Std Deviation 45.1 (36.4-46.3) fL. Plt Count 261 (182-369) K/mm3. MPV 9.4 (9.4-12.3) fl. Neut % (Auto) 73.0 H (34.0-71.1) %. Lymph % (Auto) 19.1 L (19.3-51.7) %. Gibson % (Auto) 6.2 (4.7-12.5) %. Eos % (Auto) 0.7 (0.7-5.8). Baso % (Auto) 0.2 (0.1-1.2) %. Neut # (Auto) 8.55 H (1.56-6.13) K/mm3. Lymph # (Auto) 2.23 (1.18-3.74) K/mm3. Gibson # (Auto) 0.73 H (0.24-0.36) K/mm3. Eos # (Auto) 0.08 (0.04-0.36) K/mm3. Baso # (Auto) 0.02 (0.01-0.08) K/mm3. Manual Slide Review Normal smear. SARS-CoV-2 RNA (CHELSY) Positive H (NEGATIVE). Blood Type A POSITIVE. Gel Antibody Screen Negative. Med Orders - Current: Current Medications. Acetaminophen (Acetaminophen 325 Mg Tab) 650 mg PO Q4H PRN. PRN Reason: Pain (Mild 1-3) and fever. Calcium Carbonate/Glycine (Calcium Carbonate 500 Mg Tab.Chew) 1,000 mg PO Q2H PRN. PRN Reason: Indigestion. Diphenhydramine HCl (Diphenhydramine 50 Mg/Ml Sdv) 25 mg IVPUSH Q6H PRN. PRN Reason: pruritis. Ephedrine Sulfate (Ephedrine 50 Mg/Ml Sdv) 5 mg IVPUSH ASDIRECTED PRN. PRN Reason: Hypotension. Fentanyl (Fentanyl 100 Mcg/2 Ml Sdv) 100 mcg EPIDUR Q3H PRN. PRN Reason: Pain. Fentanyl/Bupivacaine HCl (Bupivacaine/Fentanyl/Ns 100 Ml Bag) 100 ml EPIDUR ASDIRECTED PRN. PRN Reason: Pain. Lactated Ringer's (Ringers, Lactated) 1,000 mls @ 100 mls/hr IV ASDIRECTED [facility]. Last Admin: 07/30/20 04:34 Dose: 100 mls/hr. Documented by: Ampicillin Sodium 1 gm/ Sodium (Chloride) 100 mls @ 200 mls/hr IV Q4H [facility]. Last Admin: 07/30/20 08:04 Dose: 200 mls/hr. Documented by: Oxytocin/Lactated Ringer's (Pitocin In Lr 10 Units/1,000 Ml) 10 unit in 1,000 mls @ 12 mls/hr IV TITRATE [facility]; Protocol. Last Admin: 07/30/20 04:32 Dose: 2 munits/min, 12 mls/hr. Documented by: Oxytocin/Lactated Ringer's (Pitocin In Lr 10 Units/1,000 Ml) 10 unit in 1,000 mls @ 500 mls/hr IV .CONTINUOUS BOO[facility]. Misoprostol (Misoprostol 25 Mcg (1/4 Of 100 Mcg) Tab) 50 mcg VAG Q4H PRN. PRN Reason: Cervical Ripening. Last Admin: 07/30/20 00:30 Dose: 50 mcg. Documented by: Nalbuphine HCl (Nalbuphine 10 Mg/1 Ml Vial) 10 mg IVPUSH Q2H PRN. PRN Reason: Pain. Last Admin: 07/30/20 06:14 Dose: 10 mg. Documented by: Ondansetron HCl (Ondansetron 4 Mg/2 Ml Sdv) 4 mg IVPUSH Q4H PRN. PRN Reason: Nausea/Vomiting. Sodium Chloride (Sodium Chloride 0.9% 10 Ml Syringe) 10 ml FLUSH ASDIRECTED PRN. PRN Reason: Keep Vein Open. Discontinued Medic ations. Ampicillin Sodium 2 gm/ Sodium (Chloride) 100 mls @ 200 mls/hr IV ONETIME ONE. Stop: 07/29/20 20:29. Last Admin: 07/29/20 20:10 Dose: 200 mls/hr. Documented by: Lidocaine HCl (Lidocaine 1% 50 Ml Mdv) 20 ml INJECT ONETIME ONE. Stop: 07/29/20 19:44. Lidocaine HCl (Lidocaine 1% 50 Ml Mdv) Confirm Administered Dose 50 ml .ROUTE .STK-MED ONE. Stop: 07/30/20 09:18. Misoprostol (Misoprostol 100 Mcg Tab) 50 mcg VAG Q4HR PRN. PRN Reason: Cervical Ripening. Misoprostol (Misoprostol 25 Mcg (1/4 Of 100 Mcg) Tab) Confirm Administered Dose 50 mcg .ROUTE .STK-MED ONE. Stop: 07/29/20 20:08. Last Admin: 07/29/20 20:20 Dose: Not Given. Documented by: - Exam. General: Alert, Oriented. HEENT: Pupils Equal, Mucous Membr. Moist/[place]. Neck: Supple. Lungs: Clear to Auscultation, Normal Respiratory Effort. Cardiovascular: Regular Rate, Regular Rhythm. GI/Abdominal Exam: Normal Bowel Sounds, Soft, Non-Tender. Extremities: Normal Inspection, Non-Tender, No Pedal Edema, Normal Capillary Refill. Skin: Warm, Dry, Intact. Neurological: No New Focal Deficit. Psy/Mental Status: Alert, Normal Affect, Normal Mood. - Problem List & Annotations. (1) 41 weeks gestation of . SNOMED Code(s): 88715140. Code(s): Z3A.41 - 41 WEEKS GESTATION OF Status: Acute Current Visit: Yes. (2) GBS (group B Streptococcus carrier), +RV culture, currently . SNOMED Code(s): 4910254156478, 350296109, 4977478864127. Code(s): O99.820 - STREPTOCOCCUS B CARRIER STATE COMPLICATING Status: Acute Current Visit: Yes. 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 SNOMED Code(s): 53428557, 50665046. Code(s): O09.293 - SUPRVSN OF PREG W POOR REPRODCTV OR OBSTET HX, THIRD TRI Status: Acute Current Visit: Yes. (4) Third degree perineal laceration during delivery, iiic. SNOMED Code(s): 704615972, 488533531. Code(s): O70.23 - THIRD DEGREE PERINEAL LACERATION DURING DELIVERY, IIIC Status: Acute Current Visit: Yes. - Problem List Review. Problem List Initiated/Reviewed/Updated: No. - My Orders. Last 24 Hours: My Active Orders. 07/29/20 Dinner. Regular Diet [DIET]. 07/29/20 19:43. Urinary Catheter Assessment [RC] ASDIRECTED. Acetaminophen [TylenoL] 650 mg PO Q4H PRN. Calcium Carbonate [Tums] 1,000 mg PO Q2H PRN. Nalbuphine [Nubain] 10 mg IVPUSH Q2H PRN. Ondansetron [ Zofran] 4 mg IVPUSH Q4H PRN. Sodium Chloride 0.9% [Saline Flush] 10 ml FLUSH ASDIRECTED PRN. Resuscitation Status Routine. 07/29/20 19:44. Patient Status [ADT] Routine. Activity as Tolerated [RC] PFP. Communication Order [RC] ASDIRECTED. Communication Order [RC] ASDIRECTED. Communication Order [RC] ASDIRECTED. Communication Order [RC] ASDIRECTED. Notify Provider [RC] ASDIRECTED. Notify Provider [RC] PFP. Notify Provider [RC] PRN. Peripheral IV Care [RC] . DIRECTED. Electronic Heart Tones Ext w TOCO [WOMSER] Routine. Electronic Heart Tones Internal [WOMSER] Per Unit Routine. Peripheral IV Insertion Adult [OM.PC] Routine. 07/29/20 19:45. Pump Management, Intrathecal [RC] ASDIRECTED. Lactated Ringers [Ringers, Lactated] 1,000 ml IV ASDIRECTED. Oxytocin/Lactated Ringers [Pitocin in LR 10 Units/1,000 ML] 10 unit in 1,000 ml IV .CONTINUOUS. Oxytocin/Lactated Ringers [Pitocin in LR 10 Units/1,000 ML] 10 unit in 1,000 ml IV TITRATE. 07/29/20 19:53. Notify Provider [RC] ASDIRECTED. 07/29/20 20:00. Medication Administration Instruction [OM.PC] ASDIRECTED. 07/29/20 20:15. miSOPROStoL [Cytotec] 50 mcg VAG Q4H PRN. 07/30/20 00:00. Ampicillin 1 gm Sodium Chloride 0.9% [Normal Saline] 100 ml IV Q4H. - Plan. 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 , 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 SNOMED Code(s): 13779639, 56104357 ICD Code: O09.293 - SUPRVSN OF PREG W POOR REPRODCTV OR OBSTET HX, THIRD TRI Status: Acute Current Visit: Yes (4) Third degree perineal laceration during delivery, iiic SNOMED Code(s): 394394039, 510413553 ICD Code: O70.23 - THIRD DEGREE PERINEAL LACERATION DURING DELIVERY, IIIC Status: Acute Current Visit: Yes - Patient Summary/Data Complications: None Consults: None Hospital Course: Uneventful - Patient Instructions Diet: Usual Diet as Tolerated Driving: Do Not Drive (X48 hours) Notify Provider of: Fever, Increased Pain, Swelling and Redness, Drainage, Nausea and/or Vomiting - Discharge Plan *PRESCRIPTION DRUG MONITORING PROGRAM REVIEWED*: Not Applicable *COPY OF PRESCRIPTION DRUG MONITORING REPORT IN PATIENT FLORI: Not Applicable Home Medications: Home Meds Mv-Mn/Iron/FA/Herbal/Digestive [ One Tablet] 1 each PO DAILY 07/23/20 [History] Ascorbic Acid [Vitamin C] 1 cap PO DAILY 07/29/20 [History] Acetaminophen [Tylenol] 650 mg PO Q6H PRN tablet 07/31/20 [Rx] Docusate Sodium [Colace] 100 mg PO BID PRN cap 07/31/20 [Rx] Ibuprofen [Motrin] 600 mg PO Q6H PRN tablet 07/31/20 [Rx] princess Hyde [Tucks] 1 pad TOP ASDIRECTED PRN pad 07/31/20 [Rx] Referrals: Ben Patterson MD [Physician] - (Patient has follow-up appointment already scheduled.) - Discharge Summary/Plan Comment DC Time >30 min.: No - Patient Data Vitals - Most Recent: Last Vital Signs Temp 98.1 F 07/31/20 07:44 Pulse 85 07/31/20 07:44 Resp 16 07/31/20 07:44 BP 108/59 L 07/31/20 07:44 Pulse Ox 98 07/31/20 07:44 Weight - Most Recent: 205 lb 12.8 oz Lab Results - Last 24 hrs: Laboratory Results - last 24 hr 07/29/20 07/31/20 Range/Units 08:05 05:54 WBC 12.11 H (3.98-10.04) K/mm3 RBC 3.28 L (3.98-5.22) M/mm3 Hgb 7.7 L D (11.2-15.7) gm/dl Hct 26.3 L (34.1-44.9) % MCV 80.2 (79.4-94.8) fl MCH 23.5 L (25.6-32.2) pg MCHC 29.3 L (32.2-35.5) g/dl RDW Std Deviation 46.0 (36.4-46.3) fL Plt Count 212 (182-369) K/mm3 MPV 9.7 (9.4-12.3) fl Neut % (Auto) 72.0 H (34.0-71.1) % Lymph % (Auto) 21.1 (19.3-51.7) % Gibson % (Auto) 5.5 (4.7-12.5) % Eos % (Auto) 0.5 L (0.7-5.8) Baso % (Auto) 0.2 (0.1-1.2) % Neut # (Auto) 8.73 H (1.56-6.13) K/mm3 Lymph # (Auto) 2.55 (1.18-3.74) K/mm3 Gibson # (Auto) 0.67 H (0.24-0.36) K/mm3 Eos # (Auto) 0.06 (0.04-0.36) K/mm3 Baso # (Auto) 0.02 (0.01-0.08) K/mm3 Manual Slide Review Abnormal smear RPR Non-reactive (NONREACTIVE) Med Orders - Current: Current Medications Acetaminophen (Acetaminophen 325 Mg Tab) 650 mg PO Q4H PRN PRN Reason: mild pain or fever Benzocaine/Menthol (Benzocaine/Menthol 20%-0.5% [place] 56 Gm Canister) 0 gm TOP ASDIRECTED PRN PRN Reason: Perineal Comfort Measure Last Admin: 07/30/20 11:55 Dose: 1 can Documented by: Docusate Sodium (Docusate Sodium 100 Mg Cap) 100 mg PO BID PRN PRN Reason: Constipation Ibuprofen (Ibuprofen 600 Mg Tab) 600 mg PO Q4H PRN PRN Reason: Mild pain or fever Last Admin: 07/31/20 05:24 Dose: 600 mg Documented by: Princess Hyde (Princess Hyde Medicated Pads 40/Jar) 1 pad TOP ASDIRECTED PRN PRN Reason: Perineal Comfort Measure Last Admin: 07/30/20 11:55 Dose: 1 tub Documented by: Discontinued Medications Acetaminophen (Acetaminophen 325 Mg Tab) 650 mg PO Q4H PRN PRN Reason: Pain (Mild 1-3) and fever Calcium Carbonate/Glycine (Calcium Carbonate 500 Mg Tab.Chew) 1,000 mg PO Q2H PRN PRN Reason: Indigestion Diphenhydramine HCl (Diphenhydramine 50 Mg/Ml Sdv) 25 mg IVPUSH Q6H PRN PRN Reason: pruritis Ephedrine Sulfate (Ephedrine 50 Mg/Ml Sdv) 5 mg IVPUSH ASDIRECTED PRN PRN Reason: Hypotension Fentanyl (Fentanyl 100 Mcg/2 Ml Sdv) 100 mcg EPIDUR Q3H PRN PRN Reason: Pain Fentanyl/Bupivacaine HCl (Bupivacaine/Fentanyl/Ns 100 Ml Bag) 100 ml EPIDUR ASDIRECTED PRN PRN Reason: Pain Lactated Ringer's (Ringers, Lactated) 1,000 mls @ 100 mls/hr IV ASDIRECTED BOOGIE Last Admin: 07/30/20 04:34 Dose: 100 mls/hr Documented by: Ampicillin Sodium 2 gm/ Sodium (Chloride) 100 mls @ 200 mls/hr IV ONETIME ONE Stop: 07/29/20 20:29 Last Admin: 07/29/20 20:10 Dose: 200 mls/hr Documented by: Ampicillin Sodium 1 gm/ Sodium (Chloride) 100 mls @ 200 mls/hr IV Q4H BOOGIE Last Admin: 07/30/20 08:04 Dose: 200 mls/hr Documented by: Oxytocin/Lactated Ringer's (Pitocin In Lr 10 Units/1,000 Ml) 10 unit in 1,000 mls @ 12 mls/hr IV TITRATE BOOGIE; Protocol Last Titration: 07/30/20 09:45 Dose: 83.33 munits/min, 500 mls/hr Documented by: Oxytocin/Lactated Ringer's (Pitocin In Lr 10 Units/1,000 Ml) 10 unit in 1,000 mls @ 500 mls/hr IV .CONTINUOUS BOOGIE Lidocaine HCl (Lidocaine 1% 50 Ml Mdv) 20 ml INJECT ONETIME ONE Stop: 07/29/20 19:44 Last Admin: 07/30/20 09:30 Dose: 10 ml Documented by: Lidocaine HCl (Lidocaine 1% 50 Ml Mdv) Confirm Administered Dose 50 ml .ROUTE .STK-MED ONE Stop: 07/30/20 09:18 Last Admin: 07/30/20 19:38 Dose: Not Given Documented by: Misoprostol (Misoprostol 100 Mcg Tab) 50 mcg VAG Q4HR PRN PRN Reason: Cervical Ripening Misoprostol (Misoprostol 25 Mcg (1/4 Of 100 Mcg) Tab) 50 mcg VAG Q4H PRN PRN Reason: Cervical Ripening Last Admin: 07/30/20 00:30 Dose: 50 mcg Documented by: Misoprostol (Misoprostol 25 Mcg (1/4 Of 100 Mcg) Tab) Confirm Administered Dose 50 mcg .ROUTE .STK-MED ONE Stop: 07/29/20 20:08 Last Admin: 07/29/20 20:20 Dose: Not Given Documented by: Nalbuphine HCl (Nalbuphine 10 Mg/1 Ml Vial) 10 mg IVPUSH Q2H PRN PRN Reason: Pain Last Admin: 07/30/20 06:14 Dose: 10 mg Documented by: Ondansetron HCl (Ondansetron 4 Mg/2 Ml Sdv) 4 mg IVPUSH Q4H PRN PRN Reason: Nausea/Vomiting Sodium Chloride (Sodium Chloride 0.9% 10 Ml Syringe) 10 ml FLUSH ASDIRECTED PRN PRN Reason: Keep Vein Open
== END 2020-07-31 12:00 | disposition home or self-care (01) | DRG 542 ==
LOC: JD.OB 09:13 → OBSVTOIN 07-30 09:13 → JD.OB 07-30 09:41
PROVIDERS: ADMIT Obstetrics & Gynecology; ATTEND Obstetrics & Gynecology
PROC: 10E0XZZ Delivery of Products of Conception, External Approach (ICD-10-PCS; principal; 2020-07-30)
PROC: 3E0P7VZ Introduction of Hormone into Female Reproductive, Via Natural or Artificial Opening (ICD-10-PCS; 2020-07-30)
PROC: 3E033VJ Introduction of Other Hormone into Peripheral Vein, Percutaneous Approach (ICD-10-PCS; 2020-07-30)
PROC: 0DQR0ZZ Repair Anal Sphincter, Open Approach (ICD-10-PCS; 2020-07-30)
DX: O99.824 Streptococcus B carrier state complicating childbirth (principal); O98.52 Other viral diseases complicating childbirth; U07.1 COVID-19; Z37.0 Single live birth; Z3A.41 41 weeks gestation of pregnancy; O09.293 Supervision of pregnancy with other poor reproductive or obstetric history, third trimester; O70.23 Third degree perineal laceration during delivery, IIIc; Z88.2 Allergy status to sulfonamides
CPT/HCPCS: 36415; 59025; 59409; 85025; 86592; 86803; 86850; 86900; 86901; A9270-GY; J0290; J2001; J2300; J2590; J7120; U0002

== ENCOUNTER 2022-12-04 06:53 | Inpatient (IN) | payer BC ==
[2022-12-04] MEDS ORDERED: Nalbuphine 10 MG/0.5 ML Syringe IVPUSH PRN (06:58)
[2022-12-04] MEDS ORDERED: Ondansetron 4 MG/2 ML SDV IVPUSH PRN (06:58)
[2022-12-04] MEDS ORDERED: Ampicillin 2 GM in Sodium Chloride 0.9% 100 ML IV ONE (06:58)
[2022-12-04] MEDS ORDERED: Sodium Chloride 0.9% 10 ML Syringe FLUSH PRN (06:58)
[2022-12-04] MEDS ORDERED: Lidocaine 1% 50 ML MDV INJECT ONE (06:58)
[2022-12-04] MEDS ORDERED: Oxytocin/Lactated Ringers 10 UNIT/1,000 ML BAG IV SCH ×2 (07:00)
[2022-12-04 07:16] LABS: HEMATOCRIT 35.9 % (37.0-47.0); HEMOGLOBIN 11.8 gm/dl (12.0-16.0); MEAN CORPUSCULAR HEMOGLOBIN 27.8 pg (28.0-32.0); MEAN CORPUSCULAR HGB CONC 32.9 g/dl (32.0-36.0); MEAN CORPUSCULAR VOLUME 84.5 fl (83.0-99.0); MEAN PLATELET VOLUME 8.9 fl (9.4-12.3); PLATELET COUNT,PLT 168 K/mm3 (150-400); RED BLOOD CELL COUNT 4.25 M/mm3 (4.10-5.30); WHITE BLOOD CELL COUNT,WBC 8.46 K/mm3 (3.9-11.3)
[2022-12-04] MEDS: Lactated Ringers 1,000 ML IV SCH ×2 (08:02→16:50)
[2022-12-04] MEDS ORDERED: Sodium Chloride 0.9% 10 ML Syringe FLUSH SCH (09:00)
[2022-12-04] MEDS: Ampicillin 1 GM in Sodium Chloride 0.9% 100 ML IV SCH ×2 (12:07→16:04)
[2022-12-04] MEDS ORDERED: Witch Hazel Medicated Pads 40/Jar TOP PRN (18:41)
[2022-12-04] MEDS ORDERED: Benzocaine/Menthol 20%-0.5% Spray 78 GM Cannister TOP PRN (18:41)
[2022-12-04] MEDS: Ibuprofen 600 MG Tab PO PRN (19:17)
[2022-12-05] MEDS: Ibuprofen 600 MG Tab PO PRN (04:11)
[2022-12-05] MEDS: Acetaminophen 325 MG Tab PO PRN ×2 (07:50→17:19)
[2022-12-05] MEDS: Docusate Sodium 100 MG Cap PO PRN ×2 (07:50→20:25)
[2022-12-05] MEDS ORDERED: Measles, Mumps & Rubella Vaccine 0.5 ML SDV SUBCUT ONE (10:00)
[2022-12-06] MEDS: Acetaminophen 325 MG Tab PO PRN (03:20)
== END 2022-12-06 09:30 | disposition home or self-care (01) | DRG 560 ==
LOC: OBSVTOIN 06:54 → JD.OB 06:54
PROVIDERS: ADMIT Obstetrics & Gynecology; ATTEND Obstetrics & Gynecology
PROC: 10E0XZZ Delivery of Products of Conception, External Approach (ICD-10-PCS; principal; 2022-12-04)
PROC: 10907ZC Drainage of Amniotic Fluid, Therapeutic from Products of Conception, Via Natural or Artificial Opening (ICD-10-PCS; 2022-12-04)
PROC: 3E033VJ Introduction of Other Hormone into Peripheral Vein, Percutaneous Approach (ICD-10-PCS; 2022-12-04)
PROC: 0KQM0ZZ Repair Perineum Muscle, Open Approach (ICD-10-PCS; 2022-12-04)
PROC: 3E0234Z Introduction of Serum, Toxoid and Vaccine into Muscle, Percutaneous Approach (ICD-10-PCS; 2022-12-04)
DX: O99.824 Streptococcus B carrier state complicating childbirth (principal); Z37.0 Single live birth; O69.81X0 Labor and delivery complicated by cord around neck, without compression, not applicable or unspecified; O70.1 Second degree perineal laceration during delivery; Z88.2 Allergy status to sulfonamides; Z98.890 Other specified postprocedural states; Z90.89 Acquired absence of other organs; Z28.39 Other underimmunization status; Z23 Encounter for immunization
CPT/HCPCS: 36415; 59025; 59409; 85027; 86592; 86850; 86900; 86901; 90471; 90707; A9270-GY; J0290; J2001; J2300; J2590; J3490; J7120